=== PATIENT | female | born 1965 | race Caucasian/White ===

== ENCOUNTER 2018-04-06 09:43 | Emergency (ER) | payer OTHER ==
[2018-04-06] MEDS ORDERED: Ibuprofen 200 MG TAB ONE (10:17)
--- NOTE | 2018-04-06 11:13 | RAD ---
RIGHT ANKLE 3 VIEWS: Date: 04/06/18 HISTORY: Right ankle injury. FINDINGS: Nondisplaced spiral fracture involves the distal fibula above the level of the ankle mortise. Mild os teophytosis. Postoperative changes first metatarsal partially visualized. IMPRESSION: [place] Class C nondisplaced distal right fibular fracture. POS: LAYLA
== END 2018-04-06 11:03 | disposition home or self-care (01) ==
LOC: NAV ERS 09:43
DX: S82.434A Nondisplaced oblique fracture of shaft of right fibula, initial encounter for closed fracture (principal); B20 Human immunodeficiency virus [HIV] disease; F41.9 Anxiety disorder, unspecified; F32.9 Major depressive disorder, single episode, unspecified; F17.210 Nicotine dependence, cigarettes, uncomplicated; I10 Essential (primary) hypertension; Z79.899 Other long term (current) drug therapy; X50.1XXA Overexertion from prolonged static or awkward postures, initial encounter

== ENCOUNTER 2018-05-02 13:10 | Emergency (ER) | payer OTHER ==
[2018-05-02] MEDS ORDERED: Lidocaine 1% 20 ML MDV ONE (13:16)
== END 2018-05-02 13:40 | disposition home or self-care (01) ==
LOC: NAV ERS 13:10
DX: S51.812A Laceration without foreign body of left forearm, initial encounter (principal); I10 Essential (primary) hypertension; B20 Human immunodeficiency virus [HIV] disease; F41.9 Anxiety disorder, unspecified; F32.9 Major depressive disorder, single episode, unspecified; F17.210 Nicotine dependence, cigarettes, uncomplicated; Z86.19 Personal history of other infectious and parasitic diseases; Z79.899 Other long term (current) drug therapy; W26.0XXA Contact with knife, initial encounter; Y92.007 Garden or yard of unspecified non-institutional (private) residence as the place of occurrence of the external cause
CPT/HCPCS: 12001; J2001

== ENCOUNTER 2018-06-11 14:44 | Emergency (ER) | payer OTHER | END 2018-06-11 15:08 | disposition home or self-care (01) | LOC: NAV ERS 14:44 | DX: S51.812D Laceration without foreign body of left forearm, subsequent encounter (principal); I10 Essential (primary) hypertension; Z86.73 Personal history of transient ischemic attack (TIA), and cerebral infarction without residual deficits; B20 Human immunodeficiency virus [HIV] disease; F41.9 Anxiety disorder, unspecified; F32.9 Major depressive disorder, single episode, unspecified; Z87.891 Personal history of nicotine dependence; Z79.899 Other long term (current) drug therapy ==

== ENCOUNTER 2018-11-21 19:53 | Emergency (ER) | payer OTHER | END 2018-11-21 21:10 | disposition home or self-care (01) | LOC: NAV ERS 19:53 | DX: R04.0 Epistaxis (principal); I10 Essential (primary) hypertension; B20 Human immunodeficiency virus [HIV] disease; Z71.6 Tobacco abuse counseling; F17.210 Nicotine dependence, cigarettes, uncomplicated | CPT/HCPCS: 99406 ==